=== PATIENT | male | born 1965 | race Caucasian/White ===

== ENCOUNTER 2021-09-18 08:13 | Outpatient (CLI) | payer BC, SELFPAY ==
--- NOTE | ~2021-09-18 | CT_ITS ---
EXAMINATION: CT abdomen pelvis w con DATE: 09/18/2021 08:54 INDICATION: Prostate cancer. 40 pound weight loss over one year TECHNIQUE: Computed tomography (CT) of the abdomen and pelvis was performed with 100 CC Omnipaque 350 intravenous contrast. Automated exposure control and iterative reconstruction technique were employe d. Exam dose: 236.95 mGy-cm total exam DLP. COMPARISON: None. FINDINGS: The lung bases are clear. Normal heart size. No pericardial or pleural effusion. Hepatic steatosis. There are several hepatic cysts, measuring up to 7 mm maximal dimension. No hepati c space-occupying mass lesion is detected. The gallbladder appears unremarkable. No bile duct or pancreatic duct dilatation. No pancreatic mass lesion, calcification. Normal splenic size. Normal morphology of the adrenal glands. 4 mm lower pole right renal cyst. 8 mm upper pole left renal cyst. Normal appendix. There are multiple sigmoid diverticula; no CT evidence of diverticulitis. No bowel o bstruction or intraperitoneal free air. There is moderate diffuse thickening of the urinary bladder w all, likely due to prostatomegaly. Multiple prostate calcifications. There is atherosclerotic calcification of the abdominal aorta but no abdominal aortic aneurysm. No in traperitoneal or retroperitoneal or pelvic mass lesion or adenopathy or ascites. No suspicious osteolytic or osteoblastic lesions are noted. Mild likely chronic chronic compression f racture deformity of right superior vertebral endplate of L1. IMPRESSION: Prostate enlargement and calcifications; no abdominal or pelvic lymphadenopathy Small cyst of each kidney Hepatic steatosis Diverticulosis of the colon; no evidence of diverticulitis Likely chronic mild compression fracture deformity of L1 Reviewed, dictated and finalized at [facility]. Reviewed, dictated and finalized at [facility]. IMPRESSION: Prostate enlargement and calcifications; no abdominal or pelvic ly mphadenopathy Small cyst of each kidney Hepatic steatosis Diverticulosis of the colon; no evidence of diverticulitis Likely chronic mild compression fracture deformity of L1
--- NOTE | ~2021-09-18 | NM_ITS ---
EXAMINATION: NM bone scan whole body DATE: 09/18/2021 12:11 INDICATION: Malignant neoplasm of prostate. TECHNIQUE: 22.3 mCi Tc-99m HDP was administered intravenously. Delayed whole-body scintigrams were o btained. COMPARISON: CT abdomen and pelvis 09/18/2021 FINDINGS: There is increased activity in the intertrochanteric region of proximal left femur correlat ing with a nondisplaced fracture by CT. There is increased activity in superior endplate of L1 correl ating with a compression fracture by CT. There is increased activity in T10 vertebral body. There is increased activity in multiple anterior ribs bilaterally. There is joint-centered increased activity in the wrists and knees without radiographic comparison, likely osteoarthritis. IMPRESSION: 1. Increased activity in T10 vertebral body and multiple bilateral anterior ribs without recent radio graphic comparison, most likely fractures. Consider chest CT. 2. Increased activity in the intertrochanteric region of proximal left femur correlating with a nondi splaced fracture by CT. 3. No specific evidence of metastatic disease. Reviewed, dictated and finalized at location [facility]. IMPRESSION: 1. Increased activity in T10 vertebral body and multiple bilateral anterior rib s without recent radiographic comparison, most likely fractures. Consider chest CT. 2. Increased activity in the intertrochanteric region of proximal left femur co rrelating with a nondisplaced fracture by CT. 3. No specific evidence of metastatic disease.
[2021-09-18 08:45] LABS: Estimated Glomerular Filt Rate > 60
== END 2021-09-18 08:14 | disposition home or self-care (01) ==
PROVIDERS: PCP Internal Medicine
DX: Z85.46 Personal history of malignant neoplasm of prostate (principal); M89.9 Disorder of bone, unspecified; N28.1 Cyst of kidney, acquired; K76.0 Fatty (change of) liver, not elsewhere classified; K57.90 Diverticulosis of intestine, part unspecified, without perforation or abscess without bleeding
CPT/HCPCS: 74177; 78306; A9561; Q9967

== ENCOUNTER → 2021-12-17 13:58 | Outpatient (CLI) | payer BC, SELFPAY ==
--- NOTE | ~2021-12-17 | DEXA_ITS ---
Bone Density Report Name: REINA DENNISON Age: 56 Sex: Male Ethnicity: White Date of : 1965 Indication: height loss; prior fracture; Referring Provider: FRED, SARAH Ramsey Study: Bone densitometry was performed. Exam Date: December 17, 2021 Accession number: [id number] Bone Density: Region BMD T-score Z-score Classification AP Spine (L1-L4) 0.845 -2.2 -1.6 Osteopenia Femoral Neck (Left) 0.604 -2.4 -1.5 Osteopenia Total Hip (Left) 0.818 -1.4 -1.0 Osteopenia Femoral Neck (Right) 0.607 -2.4 -1.5 Osteopenia Total Hip (Right) 0.743 -1.9 -1.5 Osteopenia Total Hip Mean 0.781 -1.7 -1.3 Osteopenia World Health Organization criteria for BMD impression classify patients as: Normal (T-score at or above -1.0), Osteopenia (T-score between -1.0 and -2.5), or Osteoporosis (T-score at or below -2.5). 10-year Fracture Risk: FRAX not reported because: Prior hip or vertebral fracture Clinical Information Provided by Patient: Have had a previous hip or vertebral fracture Has had a low trauma fracture Smokes Has used the following medications: Calcium Patient maximum height was 72 Impression: The patient has low bone mass, based on the Left Femoral Neck T-score. The patient has risk factors, including: smoking, previous fracture. Discussion: INCREASED RISK OF FRACTURE DUE TO HISTORY OF LOW TRAUMA FRACTURE. The patient's previous fracture puts the patient at high risk of a future fracture. In untreated patients, the risk of osteoporotic fracture increases approximately two-fold for each 1.0 SD decrease in T-score. Low bone density is not the only risk factor for fracture; also consider factors such as patient's age, frailty or poor health, risk of falling, risk of injury, previous osteoporotic fracture, family history of osteoporosis, cigarette smoking, low body weight, etc. Not everyone with a low trauma fracture has osteoporosis; osteomalacia and other metabolic bone disorders should also be considered. Patients who have osteoporosis should be evaluated for specific diseases and conditions (secondary causes) that may cause or contribute to bone loss and fracture risk. National Osteoporosis Foundation (NOF) recommends pharmacologic intervention for patients with a prior low trauma hip or vertebral fracture regardless of BMD T-score. The patient should follow a healthful lifestyle (good nutrition with adequate calcium and vitamin D, and appropriate weight-bearing exercise). Follow-Up: Consider a repeat BMD and Vertebral Fracture Assessment (VFA) exam in 2 years or sooner if medically necessary, to reassess this patient's status. Reported by: JONATHAN on 12/17/2021 2:20:00 PM. Reviewed, dictated and finalized at location [facility]
== END ==
PROVIDERS: PCP Internal Medicine; Visit Provider Internal Medicine
DX: M85.89 Other specified disorders of bone density and structure, multiple sites (principal)
CPT/HCPCS: 77080

== ENCOUNTER 2021-12-20 13:26 | Outpatient (CLI) | payer BC, SELFPAY ==
--- NOTE | ~2021-12-20 | PE_ITS ---
EXAMINATION: PET_PETPSMAST_PT DATE: 12/20/2021 15:21 INDICATION: Malignant neoplasm of prostate with hormone sensitive status. TECHNIQUE: 10.140 mCi of piflufolastat F-18 was administered i.v. Low dose computed tomography (CT) i mages were acquired from the base of the brain to the proximal thighs for attenuation correction and anatomic localization. Automated exposure control was employed. Dose-length product (DLP) was 418 mGy -cm. Positron emission tomography (PET) images were acquired in the same distribution. COMPARISON: CT abdomen and pelvis 09/18/2021, bone scan 09/18/2021 FINDINGS: Head/neck: There are no pathologically enlarged lymph nodes. Chest: There is mild emphysema. No pleural effusion. The heart size is normal. There are coronary art emily calcifications. No pericardial effusion. There is a fracture of distal right clavicle with increa sed activity. There are multiple healing bilateral rib fractures with increased activity. There is sc lerosis in greater tuberosity of proximal right humerus with maximum SUV of 2.4, likely stress reacti on. There is a chronic compression fracture of T10. Abdomen/pelvis/proximal thighs: There is diffuse hepatic steatosis. The gallbladder, spleen, pancreas , adrenal glands, and kidneys are normal. There are no dilated loops of bowel. There is diverticulosi s of the colon without evidence of diverticulitis. The appendix is normal. There are no pathologicall y enlarged lymph nodes. There is no free intraperitoneal fluid. The prostate is moderately enlarged. There is increased activity in the prostate on the left with maximum SUV of 21.1. IMPRESSION: 1. Increased activity in the prostate on the left, likely primary malignancy. No evidence of metastat ic disease. Reviewed, dictated and finalized at location A. [facility] [employer] IMPRESSION: 1. Increased activity in the prostate on the left, likely primary malignancy. N o evidence of metastatic disease.
== END 2021-12-20 13:27 | disposition home or self-care (01) ==
PROVIDERS: PCP Internal Medicine; Visit Provider Urology
DX: C61 Malignant neoplasm of prostate (principal); Z19.1 Hormone sensitive malignancy status
CPT/HCPCS: 78815; A9595

== ENCOUNTER 2024-09-21 09:28 | Outpatient (CLI) | payer BC, SELFPAY ==
--- NOTE | ~2024-09-21 | US_ITS ---
EXAMINATION:US venous doppler LE RT INDICATION:Right leg pain TECHNIQUE: Multiple grayscale, color flow and Doppler images of the right lower extremity deep venous systems were obtained and reviewed. COMPARISON:No prior studies for comparison. FINDINGS: The common femoral, superficial femoral and popliteal veins demonstrate normal respiratory variation, augmentation and compressibility. Color flow is also seen within the posterior tibial, pe roneal, greater saphenous and profunda veins. IMPRESSION: 1: No lower extremity deep venous thrombosis. Reviewed, dictated and finalized at location A.
--- OUTSIDE RECORDS SUMMARY | 2024-09-21 09:36 | XMS_ITS | Clinical Summary ---
Author Organization [facility] [address] [facility] [place] [address] Care Team Providers Care Community Educator Name Role Phone Fiordaliza Bailey DPM Primary Care Provider [phone] Allergies No known active allergies Medications lisinopriL (PRINIVIL,ZESTRI L) 20 mg tablet Take 1 tablet (20 mg total) by mouth daily 03/02/2024 Active Active Problems Problem Noted Date Diagnosed Date Primary hypertension 04/27/2024 Assessment & Plan (05/18/2024 11:02 AM CDT): Impression: Chronic and stable. Plan: Continue lisinopril Assessment & Plan (04/27/2024 9:04 AM CDT): Stable continue lisinopril Peripheral vascular disease, unspecified 025 Assessment & Plan (05/18/2024 11:03 AM CDT): Impression: Superficial wound to the right 5th toe has healed. Patient has palpable bilateral distal pulses. Lower extremity arterial Doppler reveals triphasic waveforms throughout bilateral lower extremities with normal ABIs. Plan: No surgical interventions required. -patient to follow-up as needed. Assessment & Plan (04/27/2024 9:05 AM CDT): Superficial right 5th toe wound. Lower extremity arterial Doppler ordered further evaluation. Tobacco abuse 04/27/2024 Assessment & Plan (05/18/2024 11:04 AM CDT): Impression: Patient is a current everyday smoker. Plan: Discussed with the patient greater than 3 minutes about the importance of smoking cessation and its health benefits to the cardiovascular health. Different treatment modalities discussed with the patient. Defer to primary care provider for further management. 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 Gender Identity Not on file Sexual Orientation Not on file Obstetrics History Last Filed Vital Signs Vital Sign Reading Time Taken Comments Blood Pressure 136/84 05/18/2024 9:51 AM CDT Pulse 69 05/18/2024 9:51 AM CDT Temperature - - Respiratory Rate - - Oxygen Saturation 99% 05/18/2024 9:51 AM CDT Inhaled Oxygen Concentration - - Weight 77.1 kg (170 lb) 05/18/2024 9:51 AM CDT Height 177.8 cm (5' 10) 05/18/2024 9:51 AM CDT Body Mass Index 24.39 05/18/2024 9:51 AM CDT Plan of Treatment Health Maintenance Due Date Last Done Comments Colon Cancer Screening-Colonoscopy 1965 Depression Screening 1965 Hepatitis C Screening 1965 Prostate Cancer Screening-PSA 1963 DTaP/Tdap/Td Vaccine (1 - Tdap) 1974 Hepatitis B Screening 1981 Regular Well Visit/Exam 18-64 1981 Zoster Vaccine (1 of 2) 2013 Covid-19 Vaccine (2023-2 5 season) 2023 02/04/2021, 05/20/2020, 04/26/2020 Influenza Vaccine (#1) 2024 Pneumococcal vaccine <65 Aged Out 02/25/2017 No longer eligible based on patient's age to complete this topic Insurance [facility] Care Teams Community Educator Relationship Specialty Start Date End Date Fiordaliza Bailey DPM [address] [place], [place] [id number] PCP - General Orthopedic Surgery 03/29/24
--- OUTSIDE RECORDS SUMMARY | 2024-09-21 09:36 | XMS_ITS | Encounter Summary ---
Author Organization [email or web address] Address 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
--- OUTSIDE RECORDS SUMMARY | 2024-09-21 09:36 | XMS_ITS | Clinical Summary ---
Author Organization [facility] Address [facility] [place] [address] Care Team Providers Care Manager Program Management Name Role Phone Uriah Ni MD Primary Care Provider [phone] Allergies No known active allergies Medications lisinopril-hydro CHLOROthiazide (ZESTORETIC) 20-12.5 MG tablet Take 1 tablet by mouth daily. Active Active Problems Problem Noted Date Diagnosed Date Prostate cancer ([facility]) 03/17/2022 Encounters Date Type Department Care Team Description 08/10/2024 7:49 AM CDT - 08/10/2024 11:59 PM [facility] Hospital Encounter [facility] [place] [address] Roxana Leone MD Discharge Disposition: Home or Self Care (Routine Discharge) from Last 3 Months Family History Medical History Relation Comments Cancer Brother prostate cancer Prostate Cancer Brother Cancer Father intestinal cance r Dementia Mother Relation Status Comments Brother Alive Daughter 1 Alive Daughter 2 Alive Father (Age 50) intestinal can cer Mother (Age 86) Son Alive Social History Tobacco Use Types Packs/Day Years Used Date Smoking Tobacco: Every Day Cigarettes 0.5 40 Smokeless Tobacco: Never Tobacco Cessation:Ready to Q uit: Not Asked; Counseling Given: Not Answered Alcohol Use Standard Drinks/Week Comments Not Currently 0 (1 standard drink = 0.6 oz pure alcohol) no alcohol aince 12/2021, says he was a heavy drinker Sex and Gender Information Value Date Recorded Sex Assigned at Not on file Legal Sex Male 9:39 AM AURIST Gender Identity Not on file Sexual Orientation Not on file Last Filed Vital Signs Vital Sign Reading Time Taken Comments Blood Pressure 95/72 03/18/2022 8:11 AM AURIST Pulse 73 03/18/2022 8:11 AM AURIST Temperature 36.7 C (98.1 F) 03/18/2022 8:11 AM AURIST Respiratory Rate 16 03/18/2022 8:11 AM AURIST Oxygen Saturation 96% 03/18/2022 8:11 AM AURIST Inhaled Oxygen Concentration - - Weight 71.7 kg (158 lb 1.1 oz) 03/17/2022 11:15 AM AURIST Height 180.3 cm (5' 11) 03/17/2022 11:15 AM AURIST Body Mass Index 22.05 03/17/2022 11:15 AM AURIST Plan of Treatment Health Maintenance Due Date Last Done Comments Colorectal Cancer Screening Colonoscopy (10 Years) 1963 Annual Physical 1966 Hepatitis C 1981 DTaP, Tdap and Td Vaccines ( 1 - Tdap) 1982 Zoster Vaccines (1 of 2) 2013 Pneumococcal Vaccine: 50+ Years (2 of 2 - PCV) 02/25/2018 02/25/2017 COVID-19 Vaccine (4 - 2023-2 5 season) 2023 02/04/2021, 05/20/2020, 04/26/2020 RSV Immunization or 60+ Years (1 - 1-dose 75+ series) 2038 Meningococcal B Vaccine Aged Out No l onger eligible based on patient's age to complete this topic Meningococcal Vaccine Aged Out No ashely dominic eligible based on patient's age to complete this topic RSV Immunizations Under 20 Months Aged Out No longer eligible b ased on patient's age to complete this topic Procedures Procedure Name Priority Date/Time Associated Diagnosis Comments PATHOLOGY Routine 08/10/2024 12:00 AM CDT from Last 3 Months Results * Pathology (08/10/2024 12:00 AM CDT) PATHOLOGY [facility] Department of Laboratory Medicine [address] [place] [address] , extension [phone] Pathology Report Surgical Pathology Report Name: REINA HOROWITZ Specimen #: [id number] Age: 1 1965 (Age: 59) Location: [facility] Sex: M Procedure Date: 08/10/2024 Hospital #: [id number] Date Received: 08/11/2024 Date Reported: 08/15/2024 Provider: ROXANA LEONE MD Source: Colon, sigmoid, polyp Clinical History: Screening. Postoperative Diagnosis: Polyp. FINAL DIAGNOSIS: Colon polyp, sigmoid, polypectomy: -Fragments of tubular adenoma Gross Description: Received in formalin, labeled with a patient label and as sigmoid polyp are 2 brown-stacy polyps 0.2 and 0.4 cm. The base is not identified on either polyp. The larger polyp is bisected. The specimen is entirely submitted in cassette 1. Gross examination (when applicable) was performed at [facility], [address] [place] [address]. This case was interpreted and signed out at [facility], [address] [place] [address]. Electronically Signed Out HARESH RODRIGUEZ MD [facility] 08/10/2024 08/11/2024 12: 33 PM CDT Comment:Colon, sigmoid, poly p Roxana Leone MD PATHOLOGY/CYTOLOGY ORDERA BLES Final Result [facility] [address] [place] [address], [id number] from Last 3 Months Insurance [facility] Advance Directives * Full Code (Latest Code Status on File) Date Activated Date Inactivated Comments 03/17/2022 5:34 PM 03/18/2022 1:05 PM Care Teams Manager Program Management Relationship Specialty Start Date End Date Uriah Ni MD [address] [place] [phone] PCP - General INTERNAL MEDICINE 12/24/21
--- OUTSIDE RECORDS SUMMARY | 2024-09-21 09:36 | XMS_ITS | Encounter Summary ---
Author Organization [facility] Address 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
--- OUTSIDE RECORDS SUMMARY | 2024-09-21 09:36 | XMS_ITS | Clinical Summary ---
Author Organization 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
--- OUTSIDE RECORDS SUMMARY | 2024-09-21 09:37 | XMS_ITS | Encounter Summary ---
Author Organization [facility] Address [address] [place] [address] Care Team Providers Care Cdl Company Driver Name Role Phone Uriah Ni MD Primary Care Provider [phone] Encounter Details Date Type Department Care Team (Late st Contact Info) Description 12/24/2021 Prep for Procedure [facility] Pre-Admission Testing [address] [place] [id number] Poli Olsen MD [address] [facility] [place], [place] [id number] Social History Tobacco Use Types Packs/Day Years Used Date Smoking Tobacco: Every Day Cigarettes 0.5 40 Smokeless Tobacco: Never Alcohol Use Standard Drinks/Week Comments Yes 5 (1 standard drink = 0.6 oz pur e alcohol) Sex and Gender Information Value Date Recorded Sex Assigned at Not on file 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 No / Unsure 12/26/2021 9:51 AM TICKET MACHINE OPERATOR documented as of this encounter Plan of Treatment Not on file documented as of this encounter Results * CULTURE URINE (12/26/2021 9:56 AM TICKET MACHINE OPERATOR) SPEC DESCRIPTION URINE CLEAN CATCH 12/26/2021 9:56 AM TICKET MACHINE OPERATOR [facility] SPECIAL REQUESTS NO SPECIAL REQUEST 12/26/2021 9:56 AM [facility] CULTURE RESULT NO GROWTH 2 DAYS 12/28/2021 8:35 AM [facility] URINE SPECIMEN OBTAINED BY CLEAN CATCH PROCEDURE / Unknown 12/26/2021 9:56 AM TICKET MACHINE OPERATOR 12/26/2021 10:07 AM TICKET MACHINE OPERATOR Poli Olsen MD MICROBIOLOGY - GENERAL ORDERABLE S Final Result [facility] [address] [place] [address], * URINALYSIS (12/26/2021 9:56 AM TICKET MACHINE OPERATOR) SPECIMEN TYPE URINE CLEAN CATCH 12/26/2021 9:56 AM [facility] COLOR (U) COLORLESS 12/26/2021 10:50 AM [facility] TRANSPARENCY CLEAR 12/26/2021 10:50 AM [facility] SPECIFIC GRAVITY (U) 1.003 1.001 - 1.030 12/26/2021 10:50 AM [facility] U PH 6.0 5.0 - 9.0 12/26/2021 10:50 AM [facility] LEUKOCYTES (U) NEGATIVE NEGATIVE 12/26/2021 10:50 AM [facility] NITRITES NEGATIVE NEGATIVE 12/26/2021 10:50 AM [facility] PROTEIN (U) NEGATIVE <30 MG/DL 12/26/2021 10:50 AM [facility] URINE GLUCOSE NORMAL NORMAL MG/DL 12/26/2021 10:50 AM [facility] KETONES MG/DL (U) NEGATIVE NEGATIVE MG/DL 12/26/2021 10:50 AM TICKET MACHINE OPERATOR [facility] UROBILINOGEN NORMAL NORMAL MG/DL 12/26/2021 10:50 AM TICKET MACHINE OPERATOR [facility] BILIRUBIN (U) NEGATIVE NEGATIVE MG/DL 12/26/2021 10:50 AM TICKET MACHINE OPERATOR [facility] BLOOD (U) NEGATIVE NEGATIVE 12/26/2021 10:50 AM TICKET MACHINE OPERATOR [facility] URINE SPECIMEN OBTAINED BY CLEAN CATCH PROCEDURE / Unknown 12/26/2021 9:56 AM TICKET MACHINE OPERATOR Poli Olsen MD URINE ORDERABLES Final Result [facility] [address] [place] [address], [place] [phone] documented in this encounter Visit Diagnoses Diagnosis Preop examination- Primary Preoperative examination, unspecified Prostate cancer (CMS/HCC HHS/HCC) Malignant neoplasm of prostate documented in this encounter Care Teams Cdl Company Driver Relationship Specialty Start Date End Date Uriah Ni MD [address] [address] PCP - General INTERNAL MEDICINE 12/24/21 documented as of this encounter
== END 2024-09-21 09:29 | disposition home or self-care (01) ==
PROVIDERS: PCP Internal Medicine; Visit Provider Internal Medicine
DX: M79.89 Other specified soft tissue disorders (principal)
CPT/HCPCS: 93971

== ENCOUNTER 2024-10-19 06:50 | Emergency (ER) | payer BC, SELFPAY ==
--- OUTSIDE RECORDS SUMMARY | 2022-03-04 09:02 | XMS_ITS | Continuity of Care Document ---
Author Organization [employer] [place] Address [address] [facility] [address] [place] [address] Phone Care Team Providers Care Satin Finisher Name Role Phone Marcelo Quigley PT Unavailable Unavailable Procedures Procedure Date Therapeutic Activities Neuromuscular Re-Ed Therapeutic Exercise Hot or Cold Pack Therapeutic Activities Neuromuscular Re-Ed Therapeutic Exercise Hot or Cold Pack Therapeutic Activities Neuromuscular Re-Ed Therapeutic Exercise Hot or Cold Pack Progress Note Therapeutic Activities Neuromuscular Re-Ed Therapeutic Exercise Hot or Cold Pack Therapeutic Activities Neuromuscular Re-Ed Therapeutic Exercise Therapeutic Activities Neuromuscular Re-Ed Therapeutic Exercise Hot or Cold Pack Therapeutic Activities Neuromuscular Re-Ed Therapeutic Exercise Hot or Cold Pack Therapeutic Activities Neuromuscular Re-Ed Therapeutic Exercise Hot or Cold Pack Therapeutic Activities Neuromuscular Re-Ed Therapeutic Exercise Hot or Cold Pack Therapeutic Activities Neuromuscular Re-Ed Therapeutic Exercise Hot or Cold Pack Therapeutic Activities Neuromuscular Re-Ed Therapeutic Exercise Hot or Cold Pack PT Evaluation Low Complexity Therapeutic Activities Neuromuscular Re-Ed Therapeutic Exercise Hot or Cold Pack WORK COND/WORK HARD RE EVAL WORK CONDITIONING INITIAL 2 HOURS WORK CONDITIONING INITIAL 2 HOURS WORK CONDITIONING INITIAL 2 HOURS WORK CONDITIONING INITIAL 2 HOURS WORK CONDITIONING INITIAL 2 HOURS WORK CONDITIONING INITIAL 2 HOURS WORK CONDITIONING ADD'L HRS WORK CONDITIONING INITIAL 2 HOURS WORK CONDITIONING INITIAL 2 HOURS WORK CONDITIONING INITIAL 2 HOURS WORK COND/WORK HARD RE EVAL WORK CONDITIONING INITIAL 2 HOURS WORK CONDITIONING INITIAL 2 HOURS WORK CONDITIONING INITIAL 2 HOURS WORK CONDITIONING INITIAL 2 HOURS WORK CONDITIONING INITIAL 2 HOURS WORK CONDITIONING ADD'L HRS WORK CONDITIONING INITIAL 2 HOURS WORK CONDITIONING INITIAL 2 HOURS WORK CONDITIONING INITIAL 2 HOURS WORK CONDITIONING INITIAL 2 HOURS WORK COND/WORK HARD RE EVAL WORK CONDITIONING INITIAL 2 HOURS WORK CONDITIONING INITIAL 2 HOURS WORK CONDITIONING INITIAL 2 HOURS WORK CONDITIONING ADD'L HRS WORK CONDITIONING INITIAL 2 HOURS WORK CONDITIONING INITIAL 2 HOURS WORK CONDITIONING ADD'L HRS WORK CONDITIONING INITIAL 2 HOURS WORK CONDITIONING ADD'L HRS WORK CONDITIONING INITIAL 2 HOURS WORK CONDITIONING ADD'L HRS WORK COND/WORK HARD EVAL WORK CONDITIONING INITIAL 2 HOURS PT RE-EVALUATION THERAPEUTIC EXERCISES NEUROMUSCULAR RE-ED MANUAL THERAPY FUNC ACTIVITY THERAPEUTIC EXERCISES NEUROMUSCULAR RE-ED MANUAL THERAPY FUNC ACTIVITY HOT/COLD PACK ELECTRIC STIMULATION UNATT THERAPEUTIC EXERCISES NEUROMUSCULAR RE-ED MANUAL THERAPY FUNC ACTIVITY HOT/COLD PACK ELECTRIC STIMULATION UNATT THERAPEUTIC EXERCISES NEUROMUSCULAR RE-ED MANUAL THERAPY FUNC ACTIVITY HOT/COLD PACK ELECTRIC STIMULATION UNATT THERAPEUTIC EXERCISES NEUROMUSCULAR RE-ED MANUAL THERAPY FUNC ACTIVITY HOT/COLD PACK ELECTRIC STIMULATION UNATT THERAPEUTIC EXERCISES NEUROMUSCULAR RE-ED MANUAL THERAPY FUNC ACTIVITY HOT/COLD PACK ELECTRIC STIMULATION UNATT THERAPEUTIC EXERCISES NEUROMUSCULAR RE-ED MANUAL THERAPY FUNC ACTIVITY HOT/COLD PACK ELECTRIC STIMULATION UNATT THERAPEUTIC EXERCISES NEUROMUSCULAR RE-ED MANUAL THERAPY FUNC ACTIVITY HOT/COLD PACK ELECTRIC STIMULATION UNATT THERAPEUTIC EXERCISES NEUROMUSCULAR RE-ED MANUAL THERAPY FUNC ACTIVITY HOT/COLD PACK ELECTRIC STIMULATION UNATT PT RE-EVALUATION THERAPEUTIC EXERCISES NEUROMUSCULAR RE-ED MANUAL THERAPY FUNC ACTIVITY HOT/COLD PACK ELECTRIC STIMULATION UNATT Nov-18-2015 THERAPEUTIC EXERCISES NEUROMUSCULAR RE-ED MANUAL THERAPY FUNC ACTIVITY HOT/COLD PACK ELECTRIC STIMULATION UNA THERAPEUTIC EXERCISES NEUROMUSCULAR RE-ED MANUAL THERAPY FUNC ACTIVITY GAIT TRAINING 15 MIN HOT/COLD PACK ELECTRIC STIMULATION UNA THERAPEUTIC EXERCISES MANUAL THERAPY HOT/COLD PACK THERAPEUTIC EXERCISES NEUROMUSCULAR RE-ED MANUAL THERAPY FUNC ACTIVITY GAIT TRAINING 15 MIN HOT/COLD PACK ELECTRIC STIMULATION UNA THERAPEUTIC EXERCISES MANUAL THERAPY FUNC ACTIVITY GAIT TRAINING 15 MIN HOT/COLD PACK ELECTRIC STIMULATION UNA THERAPEUTIC EXERCISES MANUAL THERAPY FUNC ACTIVITY GAIT TRAINING 15 MIN HOT/COLD PACK ELECTRIC STIMULATION UNA THERAPEUTIC EXERCISES MANUAL THERAPY FUNC ACTIVITY HOT/COLD PACK THERAPEUTIC EXERCISES MANUAL THERAPY FUNC ACTIVITY ELECTRIC STIMULATION UNA HOT/COLD PACK THERAPEUTIC EXERCISES MANUAL THERAPY GAIT TRAINING 15 MIN THERAPEUTIC EXERCISES NEUROMUSCULAR RE-ED MANUAL THERAPY FUNC ACTIVITY GAIT TRAINING 15 MIN THERAPEUTIC EXERCISES NEUROMUSCULAR RE-ED MANUAL THERAPY FUNC ACTIVITY GAIT TRAINING 15 MIN HOT/COLD PACK THERAPEUTIC EXERCISES MANUAL THERAPY FUNC ACTIVITY GAIT TRAINING 15 MIN HOT/COLD PACK ELECTRIC STIMULATION UNA THERAPEUTIC EXERCISES MANUAL THERAPY FUNC ACTIVITY GAIT TRAINING 15 MIN HOT/COLD PACK ELECTRIC STIMULATION UNATT THERAPEUTIC EXERCISES MANUAL THERAPY HOT/COLD PACK ELECTRIC STIMULATION UNA PT RE-EVALUATION THERAPEUTIC EXERCISES MANUAL THERAPY HOT/COLD PACK ELECTRIC STIMULATION UNA THERAPEUTIC EXERCISES MANUAL THERAPY HOT/COLD PACK ELECTRIC STIMULATION UNA THERAPEUTIC EXERCISES NEUROMUSCULAR RE-ED MANUAL THERAPY HOT/COLD PACK THERAPEUTIC EXERCISES MANUAL THERAPY HOT/COLD PACK ELECTRIC STIMULATION UNA THERAPEUTIC EXERCISES MANUAL THERAPY HOT/COLD PACK THERAPEUTIC EXERCISES NEUROMUSCULAR RE-ED MANUAL THERAPY HOT/COLD PACK THERAPEUTIC EXERCISES MANUAL THERAPY HOT/COLD PACK ELECTRIC STIMULATION UNA THERAPEUTIC EXERCISES NEUROMUSCULAR RE-ED MANUAL THERAPY HOT/COLD PACK ELECTRIC STIMULATION UNA THERAPEUTIC EXERCISES NEUROMUSCULAR RE-ED MANUAL THERAPY HOT/COLD PACK ELECTRIC STIMULATION UNA THERAPEUTIC EXERCISES MANUAL THERAPY HOT/COLD PACK ELECTRIC STIMULATION UNA THERAPEUTIC EXERCISES MANUAL THERAPY GAIT TRAINING 15 MIN HOT/COLD PACK ELECTRIC STIMULATION UNA THERAPEUTIC EXERCISES MANUAL THERAPY GAIT TRAINING 15 MIN HOT/COLD PACK ELECTRIC STIMULATION UNA THERAPEUTIC EXERCISES MANUAL THERAPY HOT/COLD PACK ELECTRIC STIMULATION UNA PT EVALUATION THERAPEUTIC EXERCISES MANUAL THERAPY HOT/COLD PACK ELECTRIC STIMULATION UNATT Advance Directives Directive Yes / No Effective Date File Name No Information Encounters Encounter Description Practice Location Reason(s) For Visit Diagnoses Date Provider Providers Copied on Encounter [facility], [address], [id number], tel:[phone] [place] No Information 3 Soraida Marcelo. . [facility] [address] [facility], [place], [place], [id number], tel:[phone] [place] No Information 3 Soraida Marcelo. . Referring Provider: Denise Bangura [facility], [place], [address]. tel:[phone] [facility] [address] [place] [address], [id number], tel:[phone] [place] No Information 3 Soraida Marcelo. . Referring Provider: Denise Bangura [facility], [place], [address]. tel:[phone], [id number], tel:[phone] [place] No Information 0- 3 Soraida Marcelo. . Referring Provider: Denise Bangura [facility], [place], [address]. tel:[phone] [place] [address] [facility] [address], [id number], tel:[phone] [place] No Information - 3 Soraida Marcelo. . Referring Provider: Denise Bangura [facility], [place], [address]. tel:[phone] [place] [address], [id number], tel:[phone] [place] No Information Feb-0 3-202 3 Klahn Andrez. . Referring Provider: Philip Pandya, Denise [facility], [place], [address]. tel:[phone] [place] [address], [place], [id number], [place] tel:[phone] [place] No Information Dec-2 9-202 2 Soraida Marcelo. . Referring Provider: Philip Pandya, Jong[address] [facility], [place], [address]. tel:[phone] [place] [address], [id number], [place] tel:[phone] [place] No Information Dec-2 7-202 2 Soraida Marcelo. . Referring Provider: Philip Pandya, [address] [facility], [place], [address]. tel:[phone] [place] [address], [id number], [place] tel:[phone] [place] No Information Dec-2 2-202 2 Soraida Marcelo. . Referring Provider: Philip Pandya, Denise [facility], [place], [address]. tel:[phone] [place] [address], [id number], [place] tel:[phone] [place] No Information Dec-2 0-202 2 Soraida Marcelo. . Referring Provider: Philip Pandya, Denise [facility], [place], [address]. tel:[phone] [place] [address], [place], [id number], [place] tel:[phone] [place] No Information Dec-1 5-202 2 Soraida Marcelo. . Referring Provider: Philip Pandya, [address] [facility], [place], [address]. tel:[phone] [address], [place], [id number], [place] tel:[phone] [place] No Information 2 Soraida Marcelo. . Referring Provider: Philip Pandya, [address] [facility], [place], [address]. tel:[phone] [place], [place] [address], [place], [id number], [place] tel:[phone] [place] No Information 2 Short Falguni. . Referring Provider: Philip Pandya, [address] [facility], [place], [address]. tel:[phone] [place] [address], [place], [id number], [place] tel:[phone] [place] No Information [address] [facility], [address], [place], [facility], [place]. tel: [phone] Referring Provider: Haylee [address] [facility] [address], [place], [address]. tel:[phone] [place] [address], [place], [id number], [place] tel:[phone] [place] No Information [address] [facility], [address], [place], [address], [place]. tel:[phone] Referring Provider: Mar [address] [facility] [address], [place], [address]. tel:[phone] [facility] [facility], [place], [address], [place] tel:[phone] [place] No Information [address] [facility], [address], [place], [address], [place]. tel: [phone] Referring Provider: Haylee Marcus[address] [facility] [address], [place], [address]. tel:[phone], [place], [id number], [place] tel:[phone] [place] No Information 6- [address] [facility], [address], [place], [address], [place]. tel: [phone] Referring Provider: Haylee [address] [facility] [address], [place], [address]. tel:[phone], [place], [id number], [place] tel:[phone] [place] No Information 5- [address] [facility], [address], [place], [address], [place]. tel: [phone] Referring Provider: Haylee Marcus[address] [facility] [address], [place], [address]. tel:[phone], [place], [address], [place] tel:[phone] [place] No Information b 2- [address] [facility], [address], [place], [address], [place]. tel: [phone] Referring Provider: Haylee [address] [facility] [address], [place], [address]. tel:[phone] [facility], [address] [place] [address], [place], [place], [id number], [place] tel:[phone] [place] No Information b 0-[address] [facility], [address], [place], [address], [place]. tel:[phone] Referring Provider: Haylee Marcus[address] [facility] [address], [place], [address]. tel:[phone], [place], [place], [id number], tel:[phone] [place] No Information 6 Thuet Hay. [address] [place] [address], [address], [place], [address], [place]. tel:[phone] Referring Provider: Haylee [address] [facility] [address], [place], [address]. tel:[phone], [id number], tel:[phone] [place] No Information 6 Zachary Sandie. [address] [place] [address], [address], [place], [address], [place]. tel:[phone] Referring Provider: Haylee [address] [facility] [address], [place], [address]. tel:[phone], [place], [address], tel:[phone] [place] No Information 6 Weirich Tomy. [address] [place] [address], [address], [place], [address], [place]. tel:[phone] Referring Provider: Reji Yusuf [address] [facility] [address], [place], [address]. tel:[phone], [id number], tel:[phone] [place] No Information 6 Thuet Hay. [address] [place] [address], [address], [place], [address], [place]. tel:[phone] Referring Provider: Reji Yusuf, [address] [facility] [address], [place], [address]. tel:[phone] [place] [address] [facility] [address], [place], [id number], [place] tel:[phone] [place] No Information - 6 Thuet Hay. [address] [place] [address], [address], [place], [address], [place]. tel: [phone] Referring Provider: Reji Yusuf, [address] [facility] [address], [place], [address]. tel:[phone], [id number], [place] tel:[phone] [place] No Information - 6 Baker Christine. [address] [place] [address], [address], [place], [address], [place]. tel: [phone] Referring Provider: Reji Yusuf, [address] [facility] [address], [place], [address]. tel:[phone], [place], [address], [place] tel:[phone] [place] No Information 6 Weirich Tomy. [address] [place] [address], [address], [place], [address], [place]. tel:[phone] Referring Provider: Reji Yusuf [address] [facility] [address], [place], [address]. tel:[phone] [address], [id number], [place] tel:[phone] [place] No Information 0-201 6 Baker Christine. [address] [place] [address], [address], [place], [address], [place]. tel:[phone] Referring Provider: Reji Yusuf [address], [place], [address]. tel:[phone] [address], [place], [id number], [place] tel:[phone] [place] No Information 6 Samuel King. [address] [place] [address], [address], [place], [address], [place]. tel: [phone] Referring Provider: Reji Yusuf [address], [place], [address]. tel:[phone] [address], [place], [id number], [place] tel:[phone] [place] No Information 6 Syed Martinez. [address] [place] [address], [address], [place], [address], [place]. tel: [phone] Referring Provider: Reji Yusuf [address] [facility] [address], [place], [address]. tel:[phone] [address], [place], [address], [place] tel:[phone] [place] No Information 5 Artur Patino. [address] [place] [address], [address], [place], [address], [place]. tel: [phone] Referring Provider: Reji Yusuf [address], [place], [address]. tel:[phone], [id number], [place] tel:[phone] [place] No Information 5 Kassidy Huitron. [address] [place] [address], [address], [place], [address], [place]. tel: [phone] Referring Provider: Reji Yusuf [address], [place], [address]. tel:[phone] [address], [place], [id number], [place] tel:[phone] [place] No Information Dec-2 4-201 5 Goldak Carey. [address] [place] [address], [address], [place], [address], [place]. tel: [phone] Referring Provider: Haylee Marcus[address] [facility] [address], [place], [address]. tel:[phone] [address], [place], [address], [place] tel:[phone] [place] No Information Dec-2 3- 5 Goldak Carey. [address] [place] [address], [address], [place], [address], [place]. tel: [phone] Referring Provider: Haylee [address] [facility] [address], [place], [address]. tel:[phone], [place], [address], [place] tel:[phone] [place] No Information Dec-2 1- 5 Weirich Tomy. [address] [place] [address], [address], [place], [address], [place]. tel:[phone] Referring Provider: Haylee [address] [facility] [address], [place], [address]. tel:[phone] [address], [place], [address], [place] tel:[phone] [place] No Information Dec-1 7- 5 Goldak Carey. [address] [place] [address], [address], [place], [address], [place]. tel:[phone] Referring Provider: Haylee [address] [facility] [address], [place], [address]. tel:[phone] [address], [place], [address], [place] tel:[phone] [place] No Information Dec-1 6-201 5 Kassidy Tomy. [address] [place] [address], [address], [place], [facility], . tel: [phone] Referring Provider: Reji Yusuf [address] [facility] [address], [place], [address]. tel:[phone], [place], [address], tel:[phone] [place] No Information Dec-1 4-201 5 Artur Patino. [address] [place] [address], [address], [place], [facility], [place]. tel: [phone] Referring Provider: Reji Yusuf [address] [facility] [address], [place], [address]. tel:[phone], [place], [address], [place] tel:[phone] [place] No Information Dec-1 1-201 5 Weipaul Tomy. [address] [place] [address], [address], [place], [facility], [place]. tel: [phone] Referring Provider: Reji Yusuf [address] [facility] [address], [place], [address]. tel:[phone] [address], [place], [address], [place] tel:[phone] [place] No Information Dec-0 9-201 5 Muehl Louie. [address] [place] [address], [address], [place], [facility], [place]. tel: [phone] [address], [place], [address], tel:[phone] [place] No Information Dec-0 7-201 [address] [facility], [address], [place], [facility], [place]. tel: [phone] [place] [address] [address], [place], [address], [place] tel:[phone] [place] No Information Dec-0 4-201 5 Thuet Hay. [address] [place] [address], [address], [place], [facility], [place]. tel: [phone] [place] [address] [address], [place], [address], [place] tel:[phone] [place] No Information Dec-0 2-201 5 Muehl Louie. [address] [place] [address], [address], [place], [facility], [place]. tel: [phone] [place] [address] [address], [place], [address], [place] tel:[phone] [place] No Information Nov-3 0-201 5 Muehl Louie. [address] [place] [address], [address], [place], [facility], [place]. tel: [phone] [address], [place], [address], [place] tel:[phone] [place] No Information Nov-2 7-201 5 Muehl Louie. [address] [place] [address], [address], [place], [facility], [place]. tel: [phone] [place] [address] [address], [place], [address], [place] tel:[phone] [place] No Information Nov-2 5-201 5 Muehl Louie. [address] [place] [address], [address], [place], [facility], [place]. tel: [phone] [address], [place], [address], [place] tel:[phone] [place] No Information Nov-2 3-201 5 Muehl Louie. [address] [place] [address], [address], [place], [facility], [place]. tel: [phone] [place] [address] [address], [place], [address], [place] tel:[phone] [place] No Information Nov-2 0-201 5 Muehl Louie. [address] [place] [address], [address], [place], [facility], [place]. tel: [phone] [place] [address] [address], [place], [address], [place] tel:[phone] [place] No Information Nov-1 8-201 5 Muehl Louie. [address] [place] [address], [address], [place], [facility], [place]. tel: [phone] [place] [address] [address], [place], [address], [place] tel:[phone] [place] No Information Nov-1 6-201 5 Muehl Louie. [address] [place] [address], [address], [place], [facility], [place]. tel: [phone] [place], [place] [address], [place], [address], [place] tel:[phone] [place] No Information Nov-1 1-201 5 Muehl Louie. [address] [place] [address], [address], [place], [facility], [place]. tel: [phone] [place] [address] [address], [place], [address], [place] tel:[phone] [place] No Information Nov-0 9-201 5 Muehl Louie. [address] [place] [address], [address], [place], [facility], [place]. tel: [phone] [address], [place], [address], [place] tel:[phone] [place] No Information Nov-0 6-201 5 Muehl Louie. [address] [place] [address], [address], [place], [facility], [place]. tel: [phone] [place] [address] [address], [place], [address], tel:[phone] [place] No Information Nov-0 4-201 5 Muehl Louie. [address] [place] [address], [address], [place], [facility], [place]. tel: [phone] [place] [address] [address], [place], [address], [place] tel:[phone] [place] No Information Nov-0 2-201 5 Muehl Louie. [address] [place] [address], [address], [place], [facility], [place]. tel: [phone] [place], [place] [address], [place], [address], [place] tel:[phone] [place] No Information Oct-3 0-201 5 Muehl Louie. [address] [place] [address], [address], [place], [facility], [place]. tel: [phone] [address], [place], [address], [place] tel:[phone] [place] No Information Oct-2 8-201 5 Thuet Hay. [address] [place] [address], [address], [place], [facility], [place]. tel: [phone] [place] [address] [address], [place], [address], [place] tel:[phone] [place] No Information Oct-2 6-201 5 Muehl Louie. [address] [place] [address], [address], [place], [facility], [place]. tel: [phone] [address], [place], [address], [place] tel:[phone] [place] No Information Oct-2 3-201 5 Muehl Louie. [address] [place] [address], [address], [place], [address], [place]. tel: [phone] [address], [place], [address], [place] tel:[phone] [place] No Information Oct-2 1-201 5 Muehl Louie. [address] [place] [address], [address], [place], [address], [place]. tel: [phone] [address], [place], [address], [place] tel:[phone] [place] No Information Oct-1 9-201 5 Muehl Louie. [address] [place] [address], [address], [place], [address], [place]. tel: [phone] [address], [place], [address], [place] tel:[phone] [place] No Information Oct-1 6-201 5 Muehl Louie. [address] [place] [address], [address], [place], [address], [place]. tel: [phone] [address], [place], [address], [place] tel:[phone] [place] No Information Oct-1 4-201 5 Muehl Louie. [address] [place] [address], [address], [place], [address], [place]. tel: [phone] [place] [address] [address], [place], [place], [id number], [place] tel:[phone] [place] No Information Oct-1 2-201 5 Muehl Louie. [address] [place] [address], [address], [place], [address], [place]. tel: [phone] [address], [place], [place], [id number], [place] tel:[phone] [place] No Information Oct-0 9-201 5 Muehl Louie. [address] [place] [address], [address], [place], [place], [facility], [place]. tel: [phone] [facility] [address] [place] [address], [id number], tel:[phone] [place] No Information Oct-0 7-201 5 Muehl Louie. [address] [place] [address], [address], [place], [facility], [place]. tel: [phone] [facility] [address], [id number], [place] tel:[phone] [place] No Information Oct-0 5-201 5 Muehl Louie. [address] [place] [address], [facility] [address], [place], [facility], [place]. tel: [phone] [address], [id number], [place] tel:[phone] [place] Unspecified abnormalities of gait and mobilityPain in right kneeStiffness of right knee, not elsewhere classifiedEffu eva, right kneeDispl bicondylar fx r tibia, subs for clos fx w routn heal Oct-0 2-201 5 Muehl Louie. [address] [place] [address], [address], [place], [facility], [place]. tel: [phone] [facility] [address] [place] [address], [id number], [place] tel:[phone] [place] No Information Sep-3 0-201 5 Muehl Louie. [address] [place] [address], [address], [place], [facility], [place]. tel: [phone] [address], [id number], tel:[phone] [place] No Information Sep-2 8-201 5 Muehl Louie. [address] [place] [address], [address], [place], [facility], [place]. tel: [phone] [address] [place], [id number], [place] tel:[phone] [place] No Information Sep-2 5-201 5 Muehl Louie. [address] [place] [address], [address], [place], [address], [place]. tel: [phone] [facility] [address], [place], [place], [id number], [place] tel: [phone] [place] No Information Sep-2 3-201 5 Muehl Louie. [address] [place] [address], [address], [place], [address], [place]. tel: [phone] [facility] [address], [place], [place], [id number], [place] tel:[phone] [place] No Information Sep-2 1-201 5 Muehl Louie. [address] [place] [address], [address], [place], [address], [place]. tel: [phone] [facility] [address], [place], [place], [id number], [place] tel:[phone] [place] No Information Sep-1 6-201 5 Muehl Louie. [address] [place] [address], [address], [place], [address], [place]. tel: [phone] [facility] [address], [place], [place], [id number], [place] tel:[phone] [place] No Information Sep-1 4-201 5 Muehl Louie. [address] [place] [address], [address], [place], [address], [place]. tel: [phone] [facility] [address], [place], [place], [id number], [place] tel:[phone] [place] No Information Sep-1 1-201 5 Muehl Louie. [address] [place] [address], [address], [place], [address], [place]. tel: [phone] [place] [address] [address], [place], [place], [id number], [place] tel:[phone] [place] Pain in joint involving lower leg Sep-0 9-201 [address] [facility], [address], [place], [address], [place]. tel: [phone] Family History Family Member Type Diagnosis Age At Onset No Information Payers Payer name Insurance type Covered alliance party ID Authoragustoa rosi(s) [facility] [id number] Social History Type Description Quantity Date Captured Comments Sex Male Smoking Status No Information Chief Complaint And Reason For Visit No Information Reason For Referral Reason For Referral No Information Plan Of Treatment Date Type Action Status Goal Tobacco Cessation Counseling completed Goal Tobacco cessation counseling completed Goal Tobacco Cessation Counseling completed Referral Ordered: Referrals: Specialist. Evaluate and Treat (related to Adjustment disorder with depressed mood) ordered Referral Ordered: Depression: Depression management program timeframe: 1 Day. (related to Depression) ordered Referral Ordered: Clinical Psychology (related to Depression) ordered History Of Present Illness Encounter Date Complaint History Of Prese nt Illness No Information Functional Status Date Functional Assessmen t No Information Instructions Date Instruction Additional Infor mation No Information Assessments Type Assessment Date No Information Patient Care Teams Name Effective Dates (start - stop) Status Members No Information
[2024-10-19] VITALS (10 sets, daily range): BP systolic 92–156; BP diastolic 66–96; PULSE 68–103; RESP 13–23; TEMP 36.5–36.6; O2SAT 96–100
--- NOTE | ~2024-10-19 | CT_ITS ---
EXAMINATION: CTA LE RT DATE: 10/19/2024 08:18 INDICATION: Worsening pain post right leg angioplasty TECHNIQUE: Computed tomographic angiography (CTA) of the right lower extremity was performed with 150 mL Omnipaque 350 intravenous contrast. Automated exposure control and iterative reconstruction technique were employed. The dose-length product was 624.82 mGy-cm. COMPARISON: CT abdomen pelvis dated 09/18/2021 FINDINGS: There is small amount of atherosclerotic plaque without hemodynamically significant stenosis along the normal caliber infrarenal abdominal aorta and the bilateral common, external and internal iliac arteries. Additional atherosclerotic plaque with mild stenosis at the right common femoral and proximal superficial femoral arteries as well as at the origin of the right deep/profunda femoral artery. There is thrombosis with complete occlusion of the right superficial femoral artery beginning 18 cm caudal to the center of the level of the epicenter of the right femoral head. The thrombosis extends 25 cm in length with reconstitution by collaterals at the popliteal artery at the level of the knee joint line. There is a 50% stenosis at the distalmost left popliteal artery. There is three-vessel runoff below the ankle with no additional hemodynamically significant stenosis along the peroneal and anterior tibial or posterior tibial arteries. Prominent diverticulosis along the sigmoid colon without adjacent from trace stranding to suggest diverticulitis. Visualized portions of the small bowel as well as the appendix are normal. Status post prostatectomy. Bladder is otherwise normal. No free fluid in the visualized pelvis. No pathologically enlarged right pelvic or inguinal lymphadenopathy. Tricompartment osteoarthritis of the right knee with likely secondary moderate osteoarthritis in the lateral compartment where there is an old healed lateral tibial plateau fracture with lateral plate and screw fixation. Additional old healed bimalleolar fracture at the right ankle with lateral plate and screw fixation along the distal fibula and fixation screw extending from distal to proximal with the medial malleolus. Additional mild polyarticular osteoarthritis at the right foot and ankle. IMPRESSION: 1. 25 cm long segment of thrombosis with complete occlusion of the mid right femoral to mid popliteal arteries. Dr. Lopez discussed these findings with Dr. Fontaine at 8:47 AM. Reviewed, dictated and finalized at location A. IMPRESSION: 1. 25 cm long segment of thrombosis with complete occlusion of the mid right f emoral to mid popliteal arteries. Dr. Lopez discussed these findings with Dr Alexandro Fontaine at 8:47 AM.
--- OUTSIDE RECORDS SUMMARY | 2024-10-19 06:54 | XMS_ITS | Encounter Summary ---
Author Organization [facility] Address 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
--- OUTSIDE RECORDS SUMMARY | 2024-10-19 06:54 | XMS_ITS | Clinical Summary ---
Author Organization [facility] Address [facility] [place] [address] Care Team Providers Care Junior Account Executive Name Role Phone Uriah Ni MD Primary Care Provider [phone] Allergies No known active allergies Medications lisinopril-hydro CHLOROthiazide (ZESTORETIC) 20-12.5 MG tablet Take 1 tablet by mouth daily. Active Active Problems Problem Noted Date Diagnosed Date Prostate cancer ([facility]) 03/17/2022 Encounters Date Type Department Care Team Description 08/10/2024 7:49 AM CDT - 08/10/2024 11:59 PM [facility] Hospital Encounter [facility] Laboratory [facility] [place] [address] Roxana Leone MD Discharge Disposition: Home or [...] on file Legal Sex Male 9:39 AM CREDIT UNION EXAMINER Gender Identity Not on file Sexual Orientation Not on file Last Filed Vital Signs Vital Sign Reading Time Taken Comments Blood Pressure 95/72 03/18/2022 8:11 AM CREDIT [employer]ION EXAMINER Pulse 73 03/18/2022 8:11 AM CREDIT [employer]ION EXAMINER Temperature 36.7 C (98.1 F) 03/18/2022 8:11 AM CREDIT UNION EXAMINER Respiratory Rate 16 03/18/2022 8:11 AM CREDIT UNION EXAMINER Oxygen Saturation 96% 03/18/2022 8:11 AM CREDIT UNION EXAMINER Inhaled Oxygen Concentration - - Weight 71.7 kg (158 lb 1.1 oz) 03/17/2022 11:15 AM CREDIT UNION EXAMINER Height 180.3 cm (5' 11) 03/17/2022 11:15 AM CREDIT UNION EXAMINER Body Mass Index 22.05 03/17/2022 11:15 AM CREDIT UNION EXAMINER Plan of Treatment Health Maintenance Due Date Last Done Comments Colorectal Cancer Screening Colonoscopy (10 Years) 1965 Annual Physical 1966 Hepatitis C 1981 DTaP, Tdap and Td Vaccines ( 1 - Tdap) 1982 Zoster Vaccines (1 of 2) 2013 Pneumococcal Vaccine: 50+ Years (2 of 2 - PCV) 02/25/2018 02/25/2017 COVID-19 Vaccine (4 - 2024-2 6 season) 2024 02/04/2021, 05/20/2020, 04/26/2020 RSV Immunization or 60+ [...] * Pathology (08/10/2024 12:00 AM CDT) PATHOLOGY [facility] Department of Laboratory Medicine [address] [place] [phone] , extension [phone] Pathology Report Surgical Pathology Report Name: REINA HOROWITZ Specimen #: [id number] Age: 1 1965 (Age: 59) Location: [facility] Sex: M Procedure Date: 08/10/2024 Hospital #: [id number] Date Received: 08/11/2024 Date Reported: 08/15/2024 Provider: [...] Gross examination (when applicable) was performed at [facility], [address] [place] [address]. This case was interpreted and signed out at [facility], [address] [place] [address]. Electronically Signed Out HARESH RODRIGUEZ MD [facility] 08/10/2024 08/11/2024 12: 33 PM CDT Comment:Colon, sigmoid, poly p Roxana Leone MD PATHOLOGY/CYTOLOGY ORDERA BLES Final Result [facility] [address] [place] [address], [id number] from Last 3 Months Insurance [facility] Advance Directives * Full Code (Latest Code Status on File) Date Activated Date Inactivated Comments 03/17/2022 5:34 PM 03/18/2022 1:05 PM Care Teams Junior Account Executive Relationship Specialty Start Date End Date Uriah Ni MD [address] [place] [address] [phone] PCP - General INTERNAL MEDICINE 12/24/21
--- OUTSIDE RECORDS SUMMARY | 2024-10-19 06:54 | XMS_ITS | Clinical Summary ---
Author Organization [address] Address [address] [place] [phone] Care Team Providers Care System Validation Engineer Name Role Phone Fiordaliza Bailey DPM Primary Care Provider [phone]- [phone] Allergies Active Allergy Reactions Criticality Noted Date Comments Other Other (See comments) 10/11/2024 Reaction: Medications lisinopriL (PRINIVIL,ZESTRIL ) 20 mg tablet Take 1 tablet (20 mg total) by mouth daily 5 Active alendronate (FOSAMAX) 70 mg tablet TAKE 1 TABLET BY MOUTH ONE TIME PER WEEK 4 Active ergocalciferol (VITAMIN D) 50,000 unit capsule TAKE 1 CAPSULE BY MOUTH ONE TIME PER WEEK FOR 90 DAYS Active rosuvastatin (CRESTOR) 40 mg tablet Take 1 tablet (40 mg total) by mouth daily 30 tablet 11 5 10/12/19 26 Active varenicline tartrate (CHANTIX) 1 mg tablet Take 0.5 tablets (0.5 mg total) by mouth 2 (two) times a day for 7 days, THEN 1 tablet (1 mg total) 2 (two) times a day. Take with full glass of water. 60 tablet 3 5 01/17/20 25 Active clopidogreL (PLAVIX) 75 mg tablet Take 1 tablet (75 mg total) by mouth daily 30 tablet 11 5 10/12/19 26 Active rivaroxaban (XARELTO) 2.5 mg tablet Take 1 tablet (2.5 mg total) by mouth 2 (two) times a day 180 tablet 5 01/13/20 25 Active cilostazoL (PLETAL) 50 mg tabletIndications :Intermittent Claudication Take 1 tablet (50 mg total) by mouth 2 (two) times a day 60 tablet 1 5 12/17/19 25 Active aspirin 81 mg enteric coated tablet Take 1 tablet (81 mg total) by mouth daily 30 tablet 11 5 10/15/19 25 Discontinu ed(Stop Taking at Discharge) Active Problems Problem Noted Date Diagnosed Date PAD (peripheral artery disease) 10/13/2024 Pain in right leg 10/11/2024 Swelling of right lower extremity 10/11/2024 Impaired circulation of right lower extremity Primary hypertension 04/27/2024 Assessment & Plan (05/18/2024 [...] cessation Closed fracture of tibial plateau 10/11/2014 Encounters Date Type Department Care Team Description 10/17/2024 Telephone [facility] Cardiology [address] [place] [phone] Javi Sorto MD Foot Swelling 10/14/2024 Telephone [facility] Cardiology [address] [place] [phone] Javi Sorto MD 10/14/2024 Telephone Cardiology Sandie Mabry NP 10/13/2024 3:05 PM CDT - 10/13/2024 4:45 PM CDT Surgery [facility] Cardiac Catheterization Lab [address] [place] [id number] Javi Sorto MD PERIPHERAL ANGIOGRAPHY 10/13/2024 10:08 AM CDT - 10/14/2024 11:55 AM CDT Hospital Encounter [address] [address] Javi Sorto MD Pain in right leg; Swelling of right lower extremity; Impaired circulation of right lower extremity Discharge Disposition: Discharge to home or self care 10/12/2024 7:55 AM CDT - 10/12/2024 11:59 PM CDT Hospital Encounter [facility] Vascular Lab [address] [place] [phone] Right leg pain Discharge Disposition: Discharge to home or self care 10/11/2024 1:00 PM CDT Office Visit [facility] Cardiology [address] [place] [phone] Javi Sorto MD Right leg pain (Primary Dx); PAD (peripheral artery disease); Primary hypertension; Tobacco abuse; Lipid screening 10/11/2024 Telephone [facility] Cardiology [address] [place] [phone] Javi Sorto MD from Last 3 Months Surgical History Surgery Date Site/Laterality Comments CARDIAC CATHETERIZATION 10/13/2024 N/A Procedure: PERIPHERAL ANGIOGRAPHY; Surgeon: Javi Sorto MD; Location: CARDIAC MATERIALS AND PROCESSES MANAGER; Service: Cardiovascular; Laterality: N/A; Medical devices from this surgery are in the Medical Devices section. CARDIAC CATHETERIZATION 10/13/2024 N/A Procedure: ULTRASOUND GUIDANCE FOR VASCULAR ACCESS S&I [id number]; Surgeon: Javi Sotro MD; Location: CARDIAC MATERIALS AND PROCESSES MANAGER; Service: Cardiovascular; Laterality: N/A; Medical devices from this surgery are in the Medical Devices section. CARDIAC CATHETERIZATION 10/13/2024 Procedure: ANGIOGRAPHY - BILATERAL EXTREMITY S&I [id number]; Surgeon: Javi Sorto MD; Location: CARDIAC MATERIALS AND PROCESSES MANAGER; Service: Cardiovascular;; Medical devices from this surgery are in the Medical Devices section. CARDIAC CATHETERIZATION 10/13/2024 N/A Procedure: PERIPHERAL ANGIOPLASTY; Surgeon: Javi Sorto MD; Location: CARDIAC MATERIALS AND PROCESSES MANAGER; Service: Cardiovascular; Laterality: N/A; Medical devices from this surgery are in the Medical Devices section. Medical History Medical History Date Comments Hypertension Family History Medical History Relation Name Comments Cancer Father Family history of malignant neoplasm - (Added by TW Conv) cancer Father Dementia Mother Relation Name Status Comments Father Mother Social History Tobacco Use Types Packs/Day Years Used Date Smoking Tobacco: Every Day Cigarettes Tobacco Cessation:Ready to Q uit: Not Asked; Counseling Given: Not Answered Personal Safety Answer Date Recorded Have you ever been in or are you currently in a harmful physical or emotional relationship or is someone making you feel afraid or unsafe? 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 Gender Identity Not on file Sexual Orientation Not on file Obstetrics History Last Filed Vital Signs Vital Sign Reading Time Taken Comments Blood Pressure 112/67 10/14/2024 8:32 AM CDT Pulse 76 10/14/2024 8:32 AM CDT Temperature 36.8 C (98.2 F) 10/14/2024 8:32 AM CDT Respiratory Rate 18 10/14/2024 8:32 AM CDT Oxygen Saturation 99% 10/14/2024 8:32 AM CDT Inhaled Oxygen Concentration - - Weight 78.2 kg (172 lb 8 oz) 10/13/2024 11:18 AM CDT Height 180.3 cm (5' 11) 10/13/2024 11:18 AM CDT Body Mass Index 24.06 10/13/2024 11:18 AM CDT Plan of Treatment Health Maintenance Due Date Last Done Comments Colon Cancer Screening-Colonoscopy 1965 Depression Screening 1963 Hepatitis C Screening 1963 Prostate Cancer Screening-PSA 1963 DTaP/Tdap/Td Vaccine (1 - Tdap) 1974 Hepatitis B Screening 1981 Regular Well Visit/Exam 18-64 1981 Zoster Vaccine (1 of 2) 2013 Pneumococcal vaccine <65 (2 of 2 - PCV) 02/25/2018 02/25/2017 Covid-19 Vaccine ( season) 2024 02/04/2021, 05/20/2020, 04/26/2020 Influenza Vaccine (#1) 2024 Medical Devices Implanted Type Area Weights And Measures Sealer Device Identifier Shelf Expiration Date Model / Serial / Lot [employer] Device Vascular Closure Femoral Arterial Access 2 Mode Polyethylene Glycol Mynx Control 6-7fr [id number] - [id number] Implanted:Qty: 1 on 10/13/2024 by Javi Sorto MD at [facility] [employer] 09/02/2026 [id number] / / [id number] Procedures Procedure Name Priority Date/Time Associated Diagnosis Comments PERIPHERAL ANGIOPLASTY Routine 5:08 PM CDT Pain in right leg Swelling of right lower extremity Impaired circulation of right lower extremity PERIPHERAL RUN OFF CATH Routine 10/14/19 5:08 PM CDT Pain in right leg Swelling of right lower extremity Impaired circulation of right lower extremity VASCULAR ACCESS US GUIDANCE Routine 10/13/2024 5:08 PM CDT Pain in right leg Swelling of right lower extremity Impaired circulation of right lower extremity PERIPHERAL ANGIOGRAPHY Routine 5:08 PM CDT Pain in right leg Swelling of right lower extremity Impaired circulation of right lower extremity POCT ACTIVATED CLOTTING TIME, HIGH RANGE Routine 10/13/2024 4:55 PM CDT POCT ACTIVATED CLOTTING TIME, HIGH RANGE Routine 10/13/2024 4:36 PM CDT ANGIOPLASTY - FEMORAL ARTERY 10/13/2024 3:35 PM CDT Pain in right leg Swelling of right lower extremity Impaired circulation of right lower extremity MODERATE SEDATION 10/13/2024 3:3 5 PM CDT Pain in right leg Swelling of right lower extremity Impaired circulation of right lower extremity EGFR Routine 10/13/2024 11:37 AM CDT DIFFERENTIAL AUTO Routine 10/13/2024 11:37 AM CDT BASIC METABOLIC PANEL Routine 10/13/2024 11:37 AM CDT CBC WITH AUTO DIFFERENTIAL Routine 10/13/2024 11:37 AM CDT ELECTROCARDIOGRAM REPORT Routine 10/12/2024 9:05 AM CDT Primary hypertension US VEIN DUPLEX LOWER EXTREMITY RIGHT LIMITED Schedule Routine, Read Routine (OP Routine) 10/12/2024 8:24 AM CDT Right leg pain POCT LIPID PANEL Routine 10/11/2024 12:45 PM CDT Lipid screening from Last 3 Months Results * PERIPHERAL ANGIOGRAPHY, VASCULAR ACCESS US GUIDANCE, PERIPHERAL RUN OFF CATH, PERIPHERAL ANGIOPLASTY (10/13/2024 5:08 PM CDT) Anatomical Region Laterality Modality X-Ray Angiograph y Narrative 10/13/2024 5:40 PM CDT PERIPHERAL ANGIOGRAM AND INTERVENTION REPORT DATE OF PROCEDURE: 10/13/24 INDICATION FOR PROCEDURE: Right lower extremity critical limb ischemia BRIEF CLINICAL HISTORY: Philip Horowitz is a 59 y.o. male male with PAD, hypertension, heavy tobacco abuse Patient has been experiencing worsening right lower extremity severe pain for about 3 weeks with recent worsening of symptoms associated with discoloration of right lower extremity. He has rest pain. On examination, right pedal pulses were not palpable or dopplerable. Patient was initiated on antiplatelet treatment, statin. He was advised to stop smoking immediately and was initiated on Chantix to facilitate smoking cessation. Urgent peripheral angiogram was recommended. Benefits and risks of the procedure were discussed with the patient in depth, and informed consent was taken prior to the procedure. Risks of the procedure include but are not limited to vascular complications like groin hematoma, retroperitoneal bleed, vessel perforation; periprocedural AR, stroke, contrast induced nephropathy, and even . Benefits and possible risks of the drug coated balloons were discussed with the patient as well. After discussing all the benefits, risks and alternatives, patient was willing to proceed with the procedure. PROCEDURES PERFORMED: Ultrasound-guided left common femoral arterial access Selective left common femoral angiogram with distal runoff Distal abdominal aortogram with bilateral iliac runoff Selective right common iliac angiogram with distal runoff Selective right superficial femoral angiogram with distal runoff Right lower extremity multisegment vascular intervention- A) balloon angioplasty of right mid-distal SFA using paclitaxel coated balloon; B) balloon angioplasty of right popliteal and proximal segment of TP trunk using paclitaxel coated balloon Moderate Sedation (CPT 07586) Deployment of Mynx vascular closure device at left common femoral arterial access site MODERATE SEDATION: Midazolam 4 mg , Fentanyl 100 mcg, start time 1551 stop time 1708, total direct [id number] monitoring of conscious sedation 77 minutes (CPT 25482) TRAINED OBSERVER: Evelyn Kimball RN was trained observer for moderate sedation. ACCESS SITE: Left common femoral artery PROCEDURE: After obtaining informed consent, patient was brought to the medical laboratory manager and prepped and draped in the usual sterile manner. Time-out and immediate reassessment of the patient was performed. After local anesthesia with lidocaine, left common femoral artery access was taken with micropuncture needle under ultrasound guidance followed by insertion of a 5 Jamaican sheath over a 0.035 inch wire. Selective left common femoral angiogram with distal runoff was performed through the 5 Jamaican sheath. After this, 5 Jamaican IM catheter was advanced in the distal abdominal aorta, distal abdominal aortogram with bilateral iliac runoff was performed using DSA. The same catheter was pointed towards the right common iliac artery, selective right common iliac angiogram with distal runoff was performed. During intervention, selective right superficial femoral angiogram was performed using long 6 Jamaican sheath. Estimated blood loss minimal. All specimens removed. The angiographic findings and details of intervention are given below. FINDINGS: PELVIC ANGIOGRAM: Distal most part of the visualized abdominal aorta is a medium to large caliber vessel, no focal stenosis or aneurysm. Bilateral common iliac and external iliac arteries are patent. There is minimal plaque in the right common iliac artery. Bilateral internal iliac arteries are patent. RIGHT LOWER EXTREMITY: Common femoral and profunda femoris artery is patent. Superficial femoral artery is patent in the proximal segment with 100% occlusion in the mid segment. The vessel does not reconstitute distally. Popliteal artery and TP trunk occluded. After intervention, proximal segments of the infrapopliteal vessels were visualized, however, distal vessels were not visualized due to sluggish blood flow. LEFT LOWER EXTREMITY: Common femoral artery and profunda femoris artery patent. SFA is a medium caliber vessel. There is about 70% stenosis in the mid segment. Mild plaque is seen in the popliteal artery. Proximal segments of the infrapopliteal vessels are patent, distal vessels were not imaged. INTERVENTION REPORT: Based on patient's clinical presentation and angiographic findings, we proceeded with intervention on the right lower extremity. Five Jamaican sheath was exchanged with a long 6 Jamaican 70 cm sheath over 035 glide advantage wire. The tip of the catheter was positioned in the right proximal SFA. Patient received aspirin and loading dose of clopidogrel [place] [address] units of unfractionated heparin used for procedural anticoagulation. ACT was monitored through the procedure. The totally occluded mid SFA was crossed with difficulty using 018 V18 wire with the supporting 035 quick cross catheter. The wire and the catheter was advanced distally into the TP trunk in the true lumen. The quick cross catheter was taken out and next, balloon angioplasty was performed initially using a 3.0 x 120 mm balloon in the entire occluded segment of SFA, popliteal artery and TP trunk. Next, angiogram showed some caodaism of flow in the SFA and popliteal artery. Next, balloon angioplasty was again performed using a 4.0 x 220 mm compliant balloon. The entire segment of SFA, popliteal artery and proximal segment of TP trunk was treated. Next, balloon angioplasty was performed using 2 [employer] paclitaxel coated balloons (4.0 x 200 mm and 5.0 x 200 mm) from distal to proximal. Each balloon was inflated for up to 3 minutes. Final angiogram showed caodaism of flow, however, there was residual about 50% diffuse stenosis in the treated vessels. Fluid the pedal level remained sluggish. At this time, decision was made to proceed with optimization of medical treatment and consider relook angiogram in future for optimization of endovascular treatment in the right lower extremity, based on repeat angiographic findings. The long sheath was taken out and short sheath was previously in the left common femoral arterial access site, followed by placement of Mynx vascular closure device. There were no immediate procedure related complications. CONCLUSIONS: Severe PAD- A) RIGHT LE% occlusion of mid SFA, popliteal artery and proximal portion of the TP trunk. Pedal vessels not well visualized due to poor filling. B) LEFT LEG: About 70% stenosis in the mid left SFA. Right lower extremity peripheral vascular intervention-balloon angioplasty of totally occluded SFA, popliteal artery and proximal segment of TP trunk using 4.0 x 200 mm and 5.0 x 200 mm [employer] paclitaxel coated balloons from distal to proximal segments. PLAN/RECOMMENDATIONS: Dual antiplatelet therapy with aspirin and clopidogrel. Would prefer single antiplatelet treatment with one of the antiplatelet agents along with low-dose rivaroxaban 2.5 mg p.o. b.i.d. at discharge, if patient is able to afford rivaroxaban. High-intensity statin. Will consider relook angiogram in the right lower extremity in near future. Patient may also need left SFA intervention, based on clinical course. Aggressive risk factor modification including complete smoking cessation. Voice recognition software was used to complete this document, therefore, medical transcription variances may occur. Javi Sorto MD, [facility] 10/13/24 Javi Sorto MD CV CARDIAC CATH PROCEDURES Final Result * (ABNORMAL) POC Activated Clotting Time, High Range (10/13/2024 4:55 PM CDT) ACT 230(H) 87 - 138 sec Blood 10/13/2024 4:55 PM CDT 10/13/2024 4:55 PM CDT us Javi Sorto MD LAB BLOOD ORDERABLES Final Resul t [facility] [id number] [place] [address] * (ABNORMAL) POC Activated Clotting Time, High Range (10/13/2024 4:36 PM CDT) ACT 203(H) 87 - 138 sec Blood 10/13/2024 4:36 PM CDT 10/13/2024 4:36 PM CDT Javi Sorto MD LAB BLOOD ORDERABLES Final Resul t Performing Organization Address [facility] Co de Phone Number RYAN GEE [phone] Department [place] [address] * eGFR (10/13/2024 11:37 AM CDT) eGFR >90 >=60 mL/min/1. 73 m2 Comment: Interpretive Data Reference Interval Normal >/= 90 mL/min/1.73m2 Mildly decreased* 60 - 89 mL/min/1.73m2 Mildly to moderately decreased 45 - 59 mL/min/1.73m2 Moderately to severely decreased 30 - 44 mL/min/1.73m2 Severely decreased 15 - 29 mL/min/1.73m2 Kidney Failure < 15 mL/min/1.73m2 *Relative to young adult level Estimated glomerular filtration rate is determined by the 2020 CKD-EPI equation recommended by the National Kidney Foundation (A Unifying Approach to GFR Estimation: Recommendations of the NKF-ASK Task Force on Reassessing the Inclusion of Race in Diagnosing Kidney Disease, JASN 2020). The CKD-EPI equation should not be used for patients with unstable renal function and has not been validated in children and those over 70. Current interpretive data was last reviewed 2020. Blood 10/13/2024 11:3 7 AM CDT 10/13/2024 11:57 AM CDT Javi Sorto MD LAB BLOOD ORDERABLES Final Resul t Performing Organization Address [facility] Co de Phone Number RYAN GEE [phone] Department [place] [address] * (ABNORMAL) Differential, auto (10/13/2024 11:37 AM CDT) Neutrophil abs 8.43(H) 1.50 - 6.50 K/cumm Imm gran abs 0.06 0.00 - 0.10 K/cumm [facility] Lymphocyte abs 3.40(H) 0.80 - 3.30 K/cumm [facility] Monocyte abs 1.03(H) 0.20 - 0.80 K/cumm [facility] Eosinophil abs 0.34 0.00 - 0.50 K/cumm [facility] Basophil abs 0.13(H) 0.00 - 0.10 K/cumm [facility] Neutrophil pct 63.0 % [facility] Comment: Interpretive Data Percent cell count reference ranges are not reported, since discordance with absolute values may lead to misinterpretation of CBC data. Current Interpretive Data was last revised on 2017. Imm gran pct 0.4 % [facility] Comment: Interpretive Data Percent cell count reference ranges are not reported, since discordance with absolute values may lead to misinterpretation of CBC data. Current Interpretive Data was last revised on 2017. Lymphocyte pct 25.4 % [facility] Comment: Interpretive Data Percent cell count reference ranges are not reported, since discordance with absolute values may lead to misinterpretation of CBC data. Current Interpretive Data was last revised on 2017. Monocyte pct 7.7 % [facility] Comment: Interpretive Data Percent cell count reference ranges are not reported, since discordance with absolute values may lead to misinterpretation of CBC data. Current Interpretive Data was last revised on 2017. Eosinophil pct 2.5 % [facility] Comment: Interpretive Data Percent cell count reference ranges are not reported, since discordance with absolute values may lead to misinterpretation of CBC data. Current Interpretive Data was last revised on 2017. Basophil pct 1.0 % [facility] Comment: Interpretive Data Percent cell count reference ranges are not reported, since discordance with absolute values may lead to misinterpretation of CBC data. Current Interpretive Data was last revised on 2017. Blood 10/13/2024 11:3 7 AM CDT 10/13/2024 11:43 AM CDT us Javi Sorto MD LAB BLOOD ORDERABLES Final Resul t RYAN GEE [phone] Department [place] [address] * (ABNORMAL) CBC with auto differential (10/13/2024 11:37 AM CDT) WBC 13.39(H) 3.80 - 9.90 K/cumm Hgb 16.2 13.0 - 17.5 g/dL [facility] Hct 48.3 38.9 - 50.3 % [facility] Plt 381 150 - 400 K/cumm [facility] MPV 9.6 9.1 - 12.3 fL [facility] RBC 5.25 4.30 - 5.80 M/cumm [facility] MCV 92.0 81.3 - 96.4 fL [facility] MCH 30.9 27.1 - 33.3 pg [facility] MCHC 33.5 32.3 - 35.7 g/dL [facility] RDW CV 13.5 11.1 - 14.9 % [facility] CH RDW SD 46.4 35.7 - 48.1 fL [facility] NRBC abs 0.00 0.00 - 0.01 K/cumm [facility] Blood 10/13/2024 11:3 7 AM CDT 10/13/2024 11:43 AM CDT us Javi Sorto MD LAB BLOOD ORDERABLES Final Resul t [facility] [id number] Department [place] [address] * (ABNORMAL) Basic metabolic panel (10/13/2024 11:37 AM CDT) Pathologist [facility] Sodium 132(L) 135 - 145 mmol/L Potassium, pl 4.6 3.3 - 4.9 mmol/L [facility] Chloride 101 97 - 110 mmol/L [facility] CO2 17(L) 22 - 32 mmol/L [facility] Anion gap 14 2 - 15 mmol/L [facility] BUN 14 6 - 25 mg/dL [facility] Creatinine 0.76(L) 0.80 - 1.30 mg/dL [facility] Glucose 93 70 - 199 mg/dL [facility] Comment: Interpretive Data Fasting glucose >/= 126 mg/dl is diagnostic for diabetes. Fasting is defined as no caloric intake for at least 8 hours. Fasting glucose between 100 mg/dl to 125 mg/dl is diagnostic of prediabetes. In a patient with classic symptoms of hyperglycemia or hyperglycemic crisis, a random glucose >/= 200 mg/dl is diagnostic for diabetes. In the absence of unequivocal hyperglycemia, results should be confirmed by repeat testing. The classification and Diagnosis of Diabetes Diabetes Care 2021; 46: S19-S40. Current interpretive data was last revised 2022. Calcium 9.2 8.5 - 10.3 mg/dL RYAN GEE Blood 10/13/2024 11:3 7 AM CDT 10/13/2024 11:43 AM CDT us Javi Sorto MD LAB BLOOD ORDERABLES Final Resul t RYAN [place]EE [id number] Department [place] [address] * Electrocardiogram Report (10/12/2024 9:05 AM CDT) us Javi Sorto MD ECG ORDERABLES Final Result * US Vein Duplex Lower Extremity Right Limited, Unilateral (10/12/2024 8:24 AM CDT) Anatomical Region Laterality Modality Vascular Right Ultrasound 10/12/2024 9:14 AM CDT Impressions 10/12/2024 9:14 AM CDT There is no evidence of acute DVT in the right lower extremity. Electronically signed by: Jose De Jesus Alvarez M.D. Narrative 10/12/2024 9:14 AM CDT EXAMINATION: US VEIN DUPLEX LOWER EXTREMITY RIGHT LIMITED, UNILATERAL HISTORY: The patient is a 59-year-old male who presents with right calf tenderness. TECHNIQUE: Right lower extremity venous duplex study was performed with white scale imaging, color Doppler imaging and spectral waveform analysis. FINDINGS: There is normal compressibility and phasicity in both common femoral veins as well as the right deep femoral, femoral, popliteal, posterior tibial and peroneal veins and right saphenofemoral junction. Imaging of these veins reveals no thrombus or reflux. Procedure Note Jose De Jesus Alvarez MD - 10/12/2024 EXAMINATION: US VEIN DUPLEX LOWER EXTREMITY RIGHT LIMITED, UNILATERAL HISTORY: The patient is a 59-year-old male who presents with right calf tenderness. TECHNIQUE: Right lower extremity venous duplex study was performed with white scale imaging, color Doppler imaging and spectral waveform analysis. FINDINGS: There is normal compressibility and phasicity in both common femoral veins as well as the right deep femoral, femoral, popliteal, posterior tibial and peroneal veins and right saphenofemoral junction. Imaging of these veins reveals no thrombus or reflux. IMPRESSION: There is no evidence of acute DVT in the right lower extremity. Electronically signed by: Jose De Jesus Alvarez M.D. Javi Sorto MD IMG US PROCEDURES Final Result * POCT lipid panel (10/11/2024 12:45 PM CDT) Cholesterol, POC 177 <200 MG/DL HDL, POC 48 >=40 mg/dL Triglycerides, POC 79 <=149 mg/dL LDL Cholesterol POC 113 <=129 mg/dL Chol/HDL Ratio, POC 3.7 NONE Non-HDL Cholesterol, POC 129 NONE mg/dL Cholesterol Total, POC 177 30 - 199 mg/dL Capillary blood 10/11/2024 1 2:45 PM CDT Javi Sorto MD POINT OF CARE TEST ORDERABLES Fi nal Result from Last 3 Months Insurance [facility] Care Teams System Validation Engineer Relationship Specialty Start Date End Date Fiordaliza Bailey DPM [address] [place] [address] PCP - General Orthopedic Surgery 03/29/24
--- OUTSIDE RECORDS SUMMARY | 2024-10-19 06:54 | XMS_ITS | Encounter Summary ---
Author Organization [facility] Address [address] [place] [id number] Care Team Providers Care Community Engagement Manager Name Role Phone Uriah Ni MD Primary Care Provider [phone] Encounter Details Date Type Department Care Team (Late st Contact Info) Description 12/24/2021 Prep for Procedure [facility] Pre-Admission Testing [address] [place] [id number] Poli Olsen MD [address] [facility] [place], [place] [id number] Social History Tobacco Use Types Packs/Day Years Used Date Smoking Tobacco: Every Day Cigarettes 0.5 40 Smokeless Tobacco: Never Alcohol Use Standard Drinks/Week Comments Yes 5 (1 standard drink = 0.6 oz pur e alcohol) Sex and Gender Information Value Date Recorded Sex Assigned at Not on file 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 No / Unsure 12/26/2021 9:51 AM ROCK WORKER documented as of this encounter Plan of Treatment Not on file documented as of this encounter Results * CULTURE URINE (12/26/2021 9:56 AM ROCK WORKER) SPEC DESCRIPTION URINE CLEAN CATCH 12/26/2021 9:56 AM ROCK WORKER [facility] SPECIAL REQUESTS NO SPECIAL REQUEST 12/26/2021 9:56 AM [facility] CULTURE RESULT NO GROWTH 2 DAYS 12/28/2021 8:35 AM [facility] URINE SPECIMEN OBTAINED BY CLEAN CATCH PROCEDURE / Unknown 12/26/2021 9:56 AM ROCK WORKER 12/26/2021 10:07 AM ROCK WORKER Poli Olsen MD MICROBIOLOGY - GENERAL ORDERABLE S Final Result [facility] [address] [place] [address], * URINALYSIS (12/26/2021 9:56 AM ROCK WORKER) SPECIMEN TYPE URINE CLEAN CATCH 12/26/2021 9:56 AM [facility] COLOR (U) COLORLESS 12/26/2021 10:50 AM [facility] TRANSPARENCY CLEAR 12/26/2021 10:50 AM [facility] SPECIFIC GRAVITY (U) 1.003 1.001 - 1.030 12/26/2021 10:50 AM [facility] U PH 6.0 5.0 - 9.0 12/26/2021 10:50 AM [facility] LEUKOCYTES (U) NEGATIVE NEGATIVE 12/26/2021 10:50 AM [facility] NITRITES NEGATIVE NEGATIVE 12/26/2021 10:50 AM [facility] PROTEIN (U) NEGATIVE <30 MG/DL 12/26/2021 10:50 AM [facility] URINE GLUCOSE NORMAL NORMAL MG/DL 12/26/2021 10:50 AM [facility] KETONES MG/DL (U) NEGATIVE NEGATIVE MG/DL 12/26/2021 10:50 AM ROCK WORKER [facility] UROBILINOGEN NORMAL NORMAL MG/DL 12/26/2021 10:50 AM ROCK WORKER [facility] BILIRUBIN (U) NEGATIVE NEGATIVE MG/DL 12/26/2021 10:50 AM ROCK WORKER [facility] BLOOD (U) NEGATIVE NEGATIVE 12/26/2021 10:50 AM ROCK WORKER [facility] URINE SPECIMEN OBTAINED BY CLEAN CATCH PROCEDURE / Unknown 12/26/2021 9:56 AM ROCK WORKER Poli Olsen MD URINE ORDERABLES Final Result [facility] [address] [place] [address], [place] [phone] documented in this encounter Visit Diagnoses Diagnosis Preop examination- Primary Preoperative examination, unspecified Prostate cancer (CMS/HCC HHS/HCC) Malignant neoplasm of prostate documented in this encounter Care Teams Community Engagement Manager Relationship Specialty Start Date End Date Uriah Ni MD [address] [address] PCP - General INTERNAL MEDICINE 12/24/21 documented as of this encounter
--- OUTSIDE RECORDS SUMMARY | 2024-10-19 06:54 | XMS_ITS | Encounter Summary ---
Author Organization [facility] Address 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
--- NOTE | 2024-10-19 07:12 | ED.GENADULT ---
HPI - General Adult General Chief complaint: Extremity Injury, Lower Stated complaint: post surgery right foot pain Time Seen by Provider: 10/19/24 06:55 History of Present Illness HPI narrative: 59-year-old male presenting to the emergency department for evaluation for right foot pain. Patient reports he had angioplasty on the right leg on at [facility]. Patient is on aspirin, Plavix, Xarelto and Cilostazol. patient had initially been on Plavix and aspirin but he called his surgeon and yesterday was started on Xarelto and cilostazol. patient states that the pain was worsened so he presented emergency department for further evaluation because he felt he was unable to wait to contact his physician later today. Upon arrival patient is complaining right foot pain but denies any leg pain. Related Data Allergies Allergy/AdvReac Type Severity Reaction Status Date / Time No Known Allergies Allergy Unknown Verified 10/19/24 06:51 Review of Systems Review of Systems: All systems reviewed & are unremarkable except as noted in HPI and below Exam Narrative: APPEARANCE: Well appearing, no pain, no distress, well-nourished. HEAD: normocephalic, atraumatic. EYES: PERRLA/EOMI, conjunctivae clear. NOSE: Normal no drainage EARS:TMS clear with good light reflex. THROAT: Pharynx clear, no exudate. NECK: Supple. No adenopathy, no masses. RESPIRATORY: Airway patent, respirations nonlabored. Clear to auscultation bilaterally, no rales, rhonchi, wheezing. CARDIOVASCULAR: Regular rate and rhythm without murmurs rubs or gallops. ABDOMINAL: Soft, nontender, nondistended, normal bowel sounds MUSCULOSKELETAL: Slow cap refill of the right great toe NEURO: Alert. Cranial nerves II through XII intact. Good gait. Good coordination SKIN: Warm, dry. Normal Color Course Vital Signs Vital signs: Vital Signs Temperature 97.8 F 10/19/24 06:54 Pulse Rate 103 H 10/19/24 06:54 Respiratory Rate 23 H 10/19/24 06:54 Blood Pressure 156/88 H 10/19/24 06:54 Pulse Oximetry 99 10/19/24 06:54 Oxygen Delivery Room Air 10/19/24 06:54 Temperature 97.8 F 10/19/24 17:00 Pulse Rate 87 10/19/24 17:00 Respiratory Rate 16 10/19/24 17:00 Blood Pressure 92/66 L 10/19/24 17:00 Pulse Oximetry 100 10/19/24 17:00 Oxygen Delivery Room Air 10/19/24 06:54 Medical Decision Making MDM Narrative Medical decision making narrative: 59-year-old male presents to the emergency department for evaluation for worsening right foot pain. Patient did have angioplasty at [facility] on . Patient was having pain and had his right leg yesterday and his Plavix and aspirin were increased to had Xarelto and cilostazol. patient did feel improved with IV medications for pain control. Patient is afebrile but does have a leukocytosis 10.2 hemoglobin of 13.4. INR 1.1. No acute abnormalities on the patient's CMP. CT was ordered and does show significant thrombus the right mid femoral to popliteal artery. Images were sent to [facility] and chicken vaccinator / vascular was consulted. patient was started on a heparin infusion without bolus per cardiology's recommendation. I discussed the case with the hospitalist at [facility], Dr Virgen, and patient was accepted for transfer. Had a lengthy discussion with patient regarding the results of the workup plan for transfer and reason for transfer. Patient was resting comfortably at that time. All questions concerns were addressed. Critical Care Procedure Note Authorized and Performed by: Adalid Fontaine Total critical care time: Approximately 36 minutes Due to a high probability of clinically significant, life threatening deterioration, the patient required my highest level of preparedness to intervene emergently and I personally spent this critical care time directly and personally managing the patient. This critical care time included obtaining a history; examining the patient; pulse oximetry; ordering and review of studies; arranging urgent treatment with development of a management plan; evaluation of patient's response to treatment; frequent reassessment; and, discussions with other providers. This critical care time was performed to assess and manage the high probability of imminent, life-threatening deterioration that could result in multi-organ failure. It was exclusive of separately billable procedures and treating other patients and teaching time. Please see MDM section and the rest of the note for further information on patient assessment and treatment. Differential Diagnosis Differential Diagnosis: DVT, arterial thrombus, ischemic limb Vital Signs Vital Signs: Vital Signs Temperature 97.8 F 10/19/24 06:54 Pulse Rate 103 H 10/19/24 06:54 Respiratory Rate 23 H 10/19/24 06:54 Blood Pressure 156/88 H 10/19/24 06:54 Pulse Oximetry 99 10/19/24 06:54 Oxygen Delivery Room Air 10/19/24 06:54 Temperature 97.8 F 10/19/24 17:00 Pulse Rate 87 10/19/24 17:00 Respiratory Rate 16 10/19/24 17:00 Blood Pressure 92/66 L 10/19/24 17:00 Pulse Oximetry 100 10/19/24 17:00 Oxygen Delivery Room Air 10/19/24 06:54 Lab Data Lab results reviewed: Yes I reviewed the patient's lab results. 10/19/24 07:25 10/19/24 07:25 Labs: Lab Results 10/19/24 Range/Units 07:25 WBC 10.2 H (4.5-10.0) K/mm3 RBC 4.34 L (4.6-6.20) M/mm3 Hgb 13.4 L (14.0-18.0) g/dL Hct 40.4 L (42.0-52.0) % MCV 93.1 (80-100) fl MCH 30.9 (26-34) pg MCHC 33.2 (32-36) g/dl RDW 13.3 (11.5-14.5) % Plt Count 315 (150-375) k/mm3 MPV 9.4 (7.4-10.4) fl Immature Gran % (Auto) 0.5 (0-0.5) % Neut % (Auto) 68.7 (45.5-73.1) % Lymph % (Auto) 19.9 (18.3-44.2) % [place] % (Auto) 7.7 (2.6-8.5) % Eos % (Auto) 2.3 (0-4.4) % Baso % (Auto) 0.9 (0.2-1.2) % Lymph # (Auto) 2.04 (0.9-3.2) K/mm3 [place] # (Auto) 0.8 H (0.1-0.6) K/mm3 Eos # (Auto) 0.2 (0-0.3) K/mm3 Baso # (Auto) 0.1 (0.0-0.1) K/mm3 Abs Immat Gran (auto) 0.05 H (0.00-0.031) K/mm3 Absolute Neuts (auto) 7.0 H (1.3-6.7) K/mm3 Absolute Nucleated RBC 0.000 (0.0-0.012) K/mm3 Nucleated RBC % 0.0 (0.0-0.2) % PT 14.4 (11.1-14.7) Seconds INR 1.1 APTT 28.4 (22.3-36.8) Seconds Sodium 133 L (137-145) mmol/L Potassium 4.2 (3.4-5.0) mmol/L Chloride 103 (98-107) mmol/L Carbon Dioxide 23 (22-30) mmol/L Anion Gap 7 (4-12) mmol/L BUN 19 (9-20) mg/dL Creatinine 1.09 (0.7-1.3) mg/dL Estim Creat Clear Calc 67 ml/min Estimated GFR > 60 (59 - ) Glucose 101 (65-110) mg/dL Lactic Acid 1.3 (0.7-2.0) mmol/L Calcium 8.3 L (8.4-10.2) mg/dL Total Bilirubin 0.4 (0.2-1.3) mg/dL AST 31 (17-59) U/L ALT 22 (6-50) U/L Alkaline Phosphatase 79 (38-126) U/L Total Protein 6.8 (6.3-8.2) g/dL Albumin 3.7 (3.5-5.1) g/dL Imaging Data Radiologist's impression: Impressions Lower Extremity CTA 10/19/24 08:36 IMPRESSION: 1. 25 cm long segment of thrombosis with complete occlusion of the mid right femoral to mid popliteal arteries. Dr. Lopez discussed these findings with Dr. Fontaine at 8:47 AM. Critical Care Time Critical Care Time Critical Care Time: Yes Total Critical Care Time: 36 Discharge Plan Discharge Clinical Impression: Femoral artery thrombosis, Acute foot pain Patient Disposition: Acute Care Hospital Condition: Stable Patient Language: Argentine Follow-up/Referrals: Raine,Uriah Ramsey MD [Primary Care Provider, Unknown]
[2024-10-19] MEDS: HYDROmorphone HCL INJ (*CRX) 1 MG/ML SYR 0.5 MG IV PUSH (07:19)
[2024-10-19 07:31] LABS: Hematocrit 40.4 % (42.0-52.0); Hemoglobin 13.4 g/dL (14.0-18.0); Immature Granulocyte Percent A 0.5 % (0-0.5); Lymphocytes Absolute Auto 2.04 K/mm3 (0.9-3.2); Mean Corpuscular HGB Conc 33.2 g/dl (32-36); Mean Corpuscular Hemoglobin 30.9 pg (26-34); Mean Corpuscular Volume 93.1 fl (80-100); Nucleated Red Blood Cells Absolute Auto 0.000 K/mm3 (0.0-0.012); Nucleated Red Blood Cells Perc 0.0 % (0.0-0.2); Platelet Count Result 315 k/mm3 (150-375); Red Blood Count 4.34 M/mm3 (4.6-6.20); White Blood Count 10.2 K/mm3 (4.5-10.0)
[2024-10-19 07:42] LABS: INR 1.1; Prothrombin Time 14.4 Seconds (11.1-14.7)
[2024-10-19 07:43] LABS: Alanine Aminotransferase 22 U/L (6-50); Albumin Level 3.7 g/dL (3.5-5.1); Alkaline Phosphatase 79 U/L (38-126); Anion Gap 7 mmol/L (4-12); Aspartate Amino Transferase 31 U/L (17-59); Bilirubin,Total 0.4 mg/dL (0.2-1.3); Blood Urea Nitrogen 19 mg/dL (9-20); Calcium 8.3 mg/dL (8.4-10.2); Carbon Dioxide 23 mmol/L (22-30); Chloride 103 mmol/L (98-107); Estimated CRCL calculation 67 ml/min; Estimated Glomerular Filt Rate > 60; Glucose 101 mg/dL (65-110); Partial Thromboplastin Time 28.4 Seconds (22.3-36.8); Potassium 4.2 mmol/L (3.4-5.0); Sodium 133 mmol/L (137-145); Total Protein 6.8 g/dL (6.3-8.2)
[2024-10-19] MEDS: HEPARIN SOD/D5W 100 UNITS/ML 25,000 UNITS/250 ML BAG 14 UNITS IV CONT (10:27)
[2024-10-19] MEDS: HYDROmorphone HCL INJ (*CRX) 1 MG/ML SYR IV PUSH ×2 (11:14→14:51)
--- NOTE | 2024-10-19 12:14 | PC.NURSE ---
Report to [facility] transfer center-patient is on wait list for [facility]
--- NOTE | 2024-10-19 13:30 | PC.NURSE ---
Attempted to call report to [facility]-receiving RN off the floor --will call back when she returns
--- NOTE | 2024-10-19 13:35 | PC.NURSE ---
1310--spoke with [facility] transfer center-room assigned at [facility], accepting MD is Dr Virgen.
--- NOTE | 2024-10-19 13:51 | PC.NURSE ---
Report to Cortney DINERO at [facility]. No EMS ETA at this time
--- NOTE | 2024-10-19 17:03 | PC.NURSE ---
Call placed to rossi DINERO at [facility] that transport team is here
== END 2024-10-19 17:05 | disposition short-term general hospital (02) ==
PROVIDERS: Emergency Provider Emergency Medicine; PCP Internal Medicine
DX: T81.718A Complication of other artery following a procedure, not elsewhere classified, initial encounter (principal); I74.3 Embolism and thrombosis of arteries of the lower extremities; Z98.62 Peripheral vascular angioplasty status; Y83.8 Other surgical procedures as the cause of abnormal reaction of the patient, or of later complication, without mention of misadventure at the time of the procedure
CPT/HCPCS: 36415; 73706; 80053; 83605; 85025; 85610; 85730; 96374; 96375; 96376; 99285; J1171; J1644; Q9967